=== PATIENT | male | born 1985 | race Caucasian/White ===

== ENCOUNTER 2016-03-29 07:09 | Emergency (ER) | payer OTHER ==
[~2016-03-29] VITALS: Ht 180.3 cm; Wt 92.4 kg
[2016-03-29 07:10] VITALS: TEMP 36.8; Ht 180.3 cm; Wt 92.4 kg
[2016-03-29] MEDS ORDERED: NAPR375T3 PO (07:50)
[2016-03-29] MEDS ORDERED: MULT-600 (07:50)
[2016-03-29] MEDS ORDERED: CEFTRIAXONE SOD INJ 1 GM ADDVIAL IV STA (08:30)
[2016-03-29] MEDS ORDERED: VANCOMYCIN 1GM/270ML NSS IV STA (08:48)
[2016-03-29 09:02] LABS: BASO % 0.1 %; BASO ABS # 0.01 K/uL (0-0.2); COMPLETE YES; EOS % 1.1 %; HEMATOCRIT 41.3 % (42-52); IG% 0.1 %; LYMPH % 13.5 %; LYMPH ABS # 1.38 K/uL (1.2-3.4); MEAN CELL VOLUME 84.5 fL (80-100); MEAN CORPUSCULAR HEMOGLOBIN 29.9 pg (25-34); MEAN CORPUSCULAR HGB CONC 35.4 g/dl (32-36); MEAN PLATELET VOLUME 9.9 fL (7.4-10.4); MONO % 8.4 %; NEUT % 76.8 %; PLATELET COUNT 182 K/uL (130-400); RED BLOOD COUNT 4.89 M/uL (4.7-6.1); WHITE BLOOD COUNT 10.22 K/uL (4.8-10.8)
[2016-03-29 09:20] LABS: URINE APPEARANCE CLEAR (CLEAR); URINE BILIRUBIN NEG (NEG); URINE COLOR DK YELLOW; URINE NITRITE NEG (NEG); UROBILINOGEN NEG (NEG); ZZUR CULT IF INDIC CLEAN CATCH NO
[2016-03-29 09:24] LABS: PARTIAL THROMBOPLASTIN RATIO 1.2; PROTHROMBIN TIME (PATIENT) 10.5 SECONDS (9.0-12.0)
[2016-03-29 09:25] LABS: MANUAL MICROSCOPIC REQUIRED? NO; REVIEW REQ? NO
[2016-03-29 09:44] LABS: BUN/CREATININE RATIO 18.1 (10-20); CALCIUM 8.8 mg/dl (8.5-10.1); CREATININE 0.81 mg/dl (0.60-1.40); MAGNESIUM 2.3 mg/dl (1.8-2.4); POTASSIUM 3.7 mmol/L (3.5-5.1)
[2016-03-29 09:47] LABS: ALB/GLOB RATIO 1.3 (0.9-2); C-REACTIVE PROTEIN 5.23 mg/dl (0-0.29)
--- NOTE | 2016-03-29 10:09 | DIAGNOSTIC IMAGING REPORT ---
TESTICULAR ULTRASOUND CLINICAL HISTORY: RIGHT scrotal abscess COMPARISON STUDY: No previous studies for comparison. FINDINGS: The right testis measures 4.8 x 2.8 x 3.3 cm. The left testis measures 4.7 x 2.9 x 3.3 cm. No intratesticular masses are visualized. There is no evidence of testicular torsion. There is a markedly thick in the right hemiscrotum. IMPRESSION: 1. Markedly thickened heterogeneous right scrotal wall. 2. No evidence of intratesticular mass. 3. No evidence of testicular torsion. Electronically signed by: Placido Tapia M.D. 03/29/2016 10:07 AM Dictated Date/Time: 03/29/2016 10:06 AM
[2016-03-29] MEDS ORDERED: SODIUM CHLORIDE 0.9% 500ML 500 ML IV STA (10:13)
[2016-03-29] MEDS ORDERED: OPTIRAY 320 IV PRN (10:30)
--- NOTE | 2016-03-29 11:51 | DIAGNOSTIC IMAGING REPORT ---
CT SCAN OF THE PELVIS WITH IV CONTRAST CLINICAL HISTORY: Right groin lump. COMPARISON STUDY: Scrotal ultrasound dated 03/29/16. TECHNIQUE: CT scan of the pelvis is performed from the pelvic inlet to the proximal femora. Images are reviewed in the axial, sagittal, and coronal planes. IV contrast was administered without complication. CT DOSE: 1153.51 mGy.cm FINDINGS: The bladder is normal in appearance. There is a 2.0 cm cystic structure identified in the prostate gland on image #177. This likely represents a utricular cyst. The seminal vesicles are normal as imaged. There is marked scrotal wall thickening and edema, right greater than left. There is a small complex/multiloculated fluid collection identified in the right scrotal wall seen on image #291. This measures 2.4 x 1.6 cm and is consistent with a small abscess. There is no large hydrocele. The testes are normal as visualized. Prominent right inguinal lymph nodes are likely on a reactive basis. There is no pelvic sidewall or iliac chain lymphadenopathy. The iliac vessels are widely patent. Visualized bowel loops are normal in caliber. A normal appendix is seen. There is a small fat-containing umbilical hernia. The bony pelvis is intact. No lytic or blastic bony lesions are seen. An indeterminant but benign-appearing lucency is noted in the body of L4. This is only partially visualized. IMPRESSION: 1. There is diffuse wall thickening and edema of the scrotal wall, right greater than left. The appearance is typical for cellulitis. 2. There is a 2.4 cm multiloculated fluid collection identified within the right scrotal wall consistent with a small abscess. 3. Prominent right inguinal lymph nodes are likely on a reactive basis. 4. There is a 2.0 cm simple appearing cystic structure identified in the prostate gland. This likely represents a utricular cyst. A urethral diverticulum is considered less likely. Consider nonemergent urologic follow-up. 5. There is indeterminant benign-appearing lucent lesion partially visualized in the body of L4. Consider nonemergent radiographic follow-up. Electronically signed by: Rj De La Rosa M.D. 03/29/2016 11:50 AM Dictated Date/Time: 03/29/2016 11:39 AM
[2016-03-29] MEDS ORDERED: XYLOCAINE 1%/SOD BICARB 20 ML VIAL INFIL ONE (12:30)
[2016-03-29] MEDS ORDERED: SULF800T23 PO (13:08)
[2016-03-29] MEDS ORDERED: CEPH500C PO (13:08)
[2016-03-29] MEDS ORDERED: HYDR-5688 PO (13:08)
--- NOTE | 2016-03-29 13:10 | EMERGENCY ROOM VISIT NOTE ---
History First contact with patient: 07:20 Chief Complaint: GROIN PAIN Stated Complaint: LUMP IN GROIN History of Present Illness The patient is a 30 year old male who presents to the Emergency Department by private vehicle for evaluation of pain and lump in the RIGHT-sided groin. He reports 2 days ago he noticed what he thought was a pimple or infected hair follicle to the RIGHT sided scrotum. He does report shaving recently. He denies any pain to the testicle itself. There is been no direct trauma to the scrotum. He reports that he did squeeze the area with some mild discharge noted. He has a moderate amount of discomfort rated his pain a 7/10. He does report a history of staph infection in the past. He denies any risks for STI' s. He is sexually active. He denies any penile discharge or drainage. He reports no fevers, chills, abdominal pain, nausea, or vomiting. He denies any hematuria or dysuria. The patient complains of pain radiates to his rectum. The patient is not a diabetic. His tetanus status is up-to-date. Review of Systems A complete 10-point Review of Systems was discussed with the patient, with pertinent positives and negatives listed in the History of Present Illness. All remaining Review of Systems questions can be considered negative unless otherwise specified. Past Medical/Surgical History Medical Problems: (1) Cellulitis Of Trunk (2) Fx Ankle Nos-Closed Family History Seizures Social History Smoking Status: Current Every Day Smoker Alcohol Use: occasionally Drug Use: none Marital Status: Occupation Status: employed Current/Historical Medications Scheduled Cephalexin Monohydrate (Keflex), 500 MG PO TID Naproxen (Naproxen), 1 TAB PO BID Sulfa/Trimethoprim (Bactrim Ds 800MG/160MG), 1 TAB PO BID Scheduled PRN Hydrocodone/Acetaminophen 5MG/325MG ([place] 5MG/325MG), 1-2 TABLET PO Q4H PRN for Pain Miscellaneous Medications Multiple Vitamins W/ Minerals (Mens Multi Vitamin & Mine) Allergies Coded Allergies: Bupropion (Verified Allergy, Intermediate, Seizures, 03/29/16) Physical Exam Vital Signs Date Time Temp Pulse Resp B/P Pulse Ox O2 Delivery O2 Flow Rate FiO2 03/29/16 13:23 102 18 119/69 100 03/29/16 12:40 111 18 144/77 99 Room Air 2/3/17 11:38 104 18 144/76 100 Room Air 03/29/16 10:11 106 18 137/76 100 Room Air 03/29/16 08:47 99 16 129/78 100 Room Air 03/29/16 07:10 36.8 110 18 129/78 100 Room Air Pain Rating (0-10): 7 Physical Exam VITAL SIGNS - Vital signs and nursing notes were reviewed. GENERAL - 30-year-old Male appearing his stated age who is in no acute distress. Communicates well with provider and answers questions appropriately. ABDOMEN - Abdominal contour flat and without pulsations or visible masses. BS normoactive all four quadrants. No tenderness to palpation appreciated throughout. No palpable masses, hepatosplenomegaly, or ascites noted. GENITOURINARY -circumcised male without penile lesions or adhesions. No urethral discharge. No testicular tenderness to palpation appreciated bilaterally. Mild induration and palpable tenderness to palpation noted to the RIGHT-sided scrotal wall at the junction of the scrotum and thigh. Multiple small open areas with purulent expressible discharge appreciated. No fluctuance to palpation. PSYCH - A&Ox3 and cooperates fully with examiner. Pt is very pleasant and interacts well with examiner. Medical Decision & Procedures ER Provider Diagnostic Interpretation: Radiological imaging and reports were reviewed by myself. Radiologist's Interpretation as follows: TESTICULAR ULTRASOUND CLINICAL HISTORY: RIGHT scrotal abscess COMPARISON STUDY: No previous studies for comparison. FINDINGS: The right testis measures 4.8 x 2.8 x 3.3 cm. The left testis measures 4.7 x 2.9 x 3.3 cm. No intratesticular masses are visualized. There is no evidence of testicular torsion. There is a markedly thick in the right hemiscrotum. IMPRESSION: 1. Markedly thickened heterogeneous right scrotal wall. 2. No evidence of intratesticular mass. 3. No evidence of testicular torsion. CT SCAN OF THE PELVIS WITH IV CONTRAST CLINICAL HISTORY: Right groin lump. COMPARISON STUDY: Scrotal ultrasound dated 03/29/16. TECHNIQUE: CT scan of the pelvis is performed from the pelvic inlet to the proximal femora. Images are reviewed in the axial, sagittal, and coronal planes. IV contrast was administered without complication. CT DOSE: 1153.51 mGy.cm FINDINGS: The bladder is normal in appearance. There is a 2.0 cm cystic structure identified in the prostate gland on image #177. This likely represents a utricular cyst. The seminal vesicles are normal as imaged. There is marked scrotal wall thickening and edema, right greater than left. There is a small complex/multiloculated fluid collection identified in the right scrotal wall seen on image #291. This measures 2.4 x 1.6 cm and is consistent with a small abscess. There is no large hydrocele. The testes are normal as visualized. Prominent right inguinal lymph nodes are likely on a reactive basis. There is no pelvic sidewall or iliac chain lymphadenopathy. The iliac vessels are widely patent. Visualized bowel loops are normal in caliber. A normal appendix is seen. There is a small fat-containing umbilical hernia. The bony pelvis is intact. No lytic or blastic bony lesions are seen. An indeterminant but benign-appearing lucency is noted in the body of L4. This is only partially visualized. IMPRESSION: 1. There is diffuse wall thickening and edema of the scrotal wall, right greater than left. The appearance is typical for cellulitis. 2. There is a 2.4 cm multiloculated fluid collection identified within the right scrotal wall consistent with a small abscess. 3. Prominent right inguinal lymph nodes are likely on a reactive basis. 4. There is a 2.0 cm simple appearing cystic structure identified in the prostate gland. This likely represents a utricular cyst. A urethral diverticulum is considered less likely. Consider nonemergent urologic follow-up. 5. There is indeterminant benign-appearing lucent lesion partially visualized in the body of L4. Consider nonemergent radiographic follow-up. Laboratory Results 03/29/16 08:30 Red Blood Count 4.89, Mean Corpuscular Volume 84.5, Mean Corpuscular Hemoglobin 29.9, Mean Corpuscular Hemoglobin Concent 35.4, Mean Platelet Volume 9.9, Neutrophils (%) (Auto) 76.8, Lymphocytes (%) (Auto) 13.5, Monocytes (%) (Auto) 8.4, Eosinophils (%) (Auto) 1.1, Basophils (%) (Auto) 0.1, Neutrophils # (Auto) 7.85, Lymphocytes # (Auto) 1.38, Monocytes # (Auto) 0.86, Eosinophils # (Auto) 0.11, Basophils # (Auto) 0.01 03/29/16 08:30 Test 03/29/16 08:30 03/29/16 08:40 03/29/16 08:44 White Blood Count 10.22 K/uL (4.8-10.8) Red Blood Count 4.89 M/uL (4.7-6.1) Hemoglobin 14.6 g/dL (14.0-18.0) Hematocrit 41.3 % (42-52) Mean Corpuscular Volume 84.5 fL (80-100) Mean Corpuscular Hemoglobin 29.9 pg (25-34) Mean Corpuscular Hemoglobin Concent 35.4 g/dl (32-36) Platelet Count 182 K/uL (130-400) Mean Platelet Volume 9.9 fL (7.4-10.4) Neutrophils (%) (Auto) 76.8 % Lymphocytes (%) (Auto) 13.5 % Monocytes (%) (Auto) 8.4 % Eosinophils (%) (Auto) 1.1 % Basophils (%) (Auto) 0.1 % Neutrophils # (Auto) 7.85 K/uL (1.4-6.5) Lymphocytes # (Auto) 1.38 K/uL (1.2-3.4) Monocytes # (Auto) 0.86 K/uL (0.11-0.59) Eosinophils # (Auto) 0.11 K/uL (0-0.5) Basophils # (Auto) 0.01 K/uL (0-0.2) RDW Standard Deviation 39.3 fL (36.4-46.3) RDW Coefficient of Variation 12.9 % (11.5-14.5) Immature Granulocyte % (Auto) 0.1 % Immature Granulocyte # (Auto) 0.01 K/uL (0.00-0.02) Erythrocyte Sedimentation Rate 12 mm/hr (0-14) Prothrombin Time 10.5 SECONDS (9.0-12.0) Prothromb Time International Ratio 1.0 (0.9-1.1) Activated Partial Thromboplast Time 31.1 SECONDS (21.0-31.0) Partial Thromboplastin Ratio 1.2 Anion Gap 9.0 mmol/L (3-11) Est Creatinine Clear Calc Drug Dose 154.9 ml/min Estimated GFR () 138.2 Estimated GFR (Non- 119.3 BUN/Creatinine Ratio 18.1 (10-20) Calcium Level 8.8 mg/dl (8.5-10.1) Magnesium Level 2.3 mg/dl (1.8-2.4) Total Bilirubin 0.8 mg/dl (0.2-1) Aspartate Amino Transf (AST/SGOT) 14 U/L (15-37) Alanine Aminotransferase (ALT/SGPT) 39 U/L (12-78) Alkaline Phosphatase 74 U/L (45-117) C-Reactive Protein 5.23 mg/dl (0-0.29) Total Protein 7.3 gm/dl (6.4-8.2) Albumin 4.1 gm/dl (3.4-5.0) Globulin 3.2 gm/dl (2.5-4.0) Albumin/Globulin Ratio 1.3 (0.9-2) Urine Color DK YELLOW Urine Appearance CLEAR (CLEAR) Urine pH 6.0 (4.5-7.5) Urine Specific [place] 1.040 (1.000-1.030) Urine Protein NEG (NEG) Urine Glucose (UA) NEG (NEG) Urine Ketones TRACE (NEG) Urine Occult Blood NEG (NEG) Urine Nitrite NEG (NEG) Urine Bilirubin NEG (NEG) Urine Urobilinogen NEG (NEG) Urine Leukocyte Esterase NEG (NEG) Bedside Lactic Acid Venous 0.46 mmol/L (0.90-1.70) Medications Administered Medications (Trade) Dose Ordered Sig/Skinny Route Start Time Stop Time Status Last Admin Dose Admin Ceftriaxone Sodium (Rocephin Inj) 1 gm NOW STAT IV 03/29/16 08:30 03/29/16 08:33 DC 03/29/16 08:45 1 GM Vancomycin HCl 1 gm 1 gm NOW STAT IV 03/29/16 08:48 03/29/16 08:49 DC 03/29/16 09:12 1 GM Sodium Chloride (Nss 500ml) 500 ml @ 999 mls/hr Q31M STAT IV 03/29/16 10:13 03/29/16 10:43 DC 03/29/16 10:27 999 MLS/HR Lidocaine HCl (Buffered Lidocaine 1% Inj) 20 ml ONE ONCE INFIL 03/29/16 12:30 03/29/16 12:31 DC 03/29/16 12:30 20 ML Procedure I examined the patient. Verbal consent was obtained to perform the procedure. After saline and Betadine cleansing and 1.0 mL of 1% buffered lidocaine anesthesia. A small amount of purulent material was expressed. The area was unroofed without significant purulent discharge. No packing was placed. Patient tolerated procedure well. No complications were met. ED Course Patient was seen and evaluated by myself. Labs were drawn, saline lock in place. Blood cultures and wound culture were obtained. Patient was treated with 1 g of Rocephin and 1 g of vancomycin intravenously. He was hydrated with 1000 mL of normal saline. Laboratory results demonstrate no acute leukocytosis , worrisome anemia, or bandemia. The patient has no significant electrolyte abnormalities. Imaging results above. Imaging results and labs were reviewed with the patient who acknowledges understanding. I did discuss the case with Dr. Titus of [facility]. He does agree with antibiotics and close follow-up. I did attempt to perform incision and drainage. There is no significant expressible purulent material. The patient will be covered with Keflex and Bactrim pending cultures. The patient was encouraged to return in 48 hours for wound recheck. He will return sooner for any changing or worsening symptoms. Patient discharged home afebrile and in good condition. Medical Decision Given the patient's presentation and exam findings, I did elect to perform the above-mentioned workup. The patient presents today with a cellulitis with underlying abscess to the RIGHT scrotal area. There is no significant findings consistent with Natali's gangrene at this point per imaging studies. He has no fever leukocytosis. His inflammatory markers are not significantly elevated. The patient was aggressively managed with intravenous antibiotics. She will be covered with enemas for home. He will return in 48 hours for wound check or sooner for any change or worsening symptoms. Patient discharged home afebrile and in good condition. In the evaluation and treatment of this patient, the following differential diagnoses were considered: Natali's gangrene, testicular torsion, testicular mass, foreign body, STI, amongst others. Impression Primary Impression: Cellulitis of scrotum Additional Impression: Abscess of scrotal wall Departure Information Dispostion Home / Self-Care Condition GOOD Prescriptions Sulfa/Trimethoprim (Bactrim Ds 800MG/160MG) Tab 1 TAB PO BID for 10 Days, #20 TAB Prov: Reggie Monte, NGHIA 03/29/16 Cephalexin Monohydrate (Keflex) 500 Mg Cap 500 MG PO TID for 10 Days, #30 CAP Prov: Reggie Monte PA-C 03/29/16 Hydrocodone/Acetaminophen 5MG/325MG ([place] 5MG/325MG) Tab 1-2 TABLET PO Q4H Y for Pain, #20 TAB For Initial Treatment Prov: Reggie Monte PA-C 03/29/16 Referrals No Doctor, Assigned (PCP) Pau Saunders MD Patient Instructions Cellulitis - [facility], My [facility] Additional Instructions You were seen in the Emergency Department for and Abscess and Cellulitis of the RIGHT sided scrotum. Please return to the emergency department in 48 hours for wound recheck. Return to the emergency department sooner if your symptoms worsen in this timeframe You have been prescribed [place] to be used for pain control. This is a narcotic medication. You cannot drive or consume alcohol while on this medicine. This medicine should only be used for pain that cannot be controlled with over-the- counter pain medicines. You were prescribed Keflex and Bactrim to be taken as prescribed. Both of these medications are antibiotics. Stop these medications and contact a medical provider if you were to develop any significant adverse side effects including: wheezing, shortness of breath, passing out, vomiting, or a diffuse rash. Always take antibiotics as directed and COMPLETE the ENTIRE course regardless of the improvement of your symptoms. Look for signs of infection of the wound including: increased pain, swelling, foul discharge, streaking, or increased temperature. If any of these are noticed you should return to the Emergency Department for further assessment and treatment. As with any laceration you may have received nerve damage to the surrounding tissues. This damage may or may not be permanent. For pain control, you can use the following [id number] medicines (if >12 yo): - Regular strength (325mg/tab) Tylenol (acetaminophen) 2 tabs every 4-6 hours as needed. Do not exceed 12 tablets in a 24 hour period. Avoid taking more than 4 grams (4000 mg) of Tylenol per day. This includes any other sources of acetaminophen you may take on a regular basis. - Regular strength (200 mg/tab) Advil (ibuprofen) 1-2 tabs every 4-6 hours as needed. Do not exceed a dose of 3200 mg per day. Return to the emergency department if your symptoms worsen despite treatment course outlined above. Problem Qualifiers
[2016-03-29 13:23] VITALS: BP 119/69; PULSE 102; O2SAT 100
[2016-06-24] MEDS ORDERED: DIPH1TAB PO (10:45)
== END 2016-03-29 13:24 | disposition home or self-care (01) ==
LOC: C.EDB 07:11 → C.EDA 13:24
DX: N49.2 Inflammatory disorders of scrotum (principal); F17.200 Nicotine dependence, unspecified, uncomplicated

== ENCOUNTER 2016-03-31 15:15 | Inpatient (IN) | payer OTHER ==
[~2016-03-31] VITALS: Ht 170.2 cm; Wt 93.6 kg
[~2016-03-31 15:15] MED LIST: CEPH500C PO; HYDR-5688 PO; MULT-600; NAPR375T3 PO; SULF800T23 PO
[2016-03-31] MEDS ORDERED: SODIUM CHLORIDE 0.9% 1000ML 1,000 ML IV STA (16:35)
[2016-03-31] MEDS ORDERED: VANCOMYCIN INJ 1,000 MG in SODIUM CHLORIDE 0.9% 250ML 250 ML IV STA (16:35)
[2016-03-31] MEDS ORDERED: CLINDAMYCIN IV 900 MG in DEXTROSE 5% ADD-VANTAGE 100ML 100 ML IV ONE (16:45)
[2016-03-31 16:59] LABS: BASO % 0.2 %; BASO ABS # 0.02 K/uL (0-0.2); COMPLETE YES; EOS % 1.2 %; HEMATOCRIT 39.6 % (42-52); IG% 0.3 %; LYMPH % 12.9 %; MEAN CELL VOLUME 84.8 fL (80-100); MEAN CORPUSCULAR HEMOGLOBIN 29.6 pg (25-34); MEAN CORPUSCULAR HGB CONC 34.8 g/dl (32-36); MEAN PLATELET VOLUME 9.9 fL (7.4-10.4); MONO % 10.9 %; NEUT % 74.5 %; PLATELET COUNT 175 K/uL (130-400); RED BLOOD COUNT 4.67 M/uL (4.7-6.1); WHITE BLOOD COUNT 11.64 K/uL (4.8-10.8)
[2016-03-31 17:25] VITALS: O2SAT 98; Ht 170.2 cm; Wt 93.6 kg
[2016-03-31 17:27] LABS: ALB/GLOB RATIO 0.8 (0.9-2); BUN/CREATININE RATIO 11.2 (10-20); CALCIUM 8.6 mg/dl (8.5-10.1); CREATININE 0.85 mg/dl (0.60-1.40)
[2016-03-31] MEDS ORDERED: HYDROCODONE/ACETAMOPHEN 5/325MG TAB PO PRN (18:45)
[2016-03-31] MEDS ORDERED: ACETAMINOPHEN 325 MG TAB PO PRN (18:45)
[2016-03-31] MEDS ORDERED: ZOLPIDEM TARTRATE 5 MG TAB PO PRN (18:45)
[2016-03-31] MEDS ORDERED: ALUMINUM/MAGNESIUM/SIMETH (MAALOX MAX) 30 ML UDC PO PRN (19:00)
[2016-03-31] MEDS ORDERED: ONDANSETRON INJ 2 MG/ML 2 ML VIAL IV PRN (19:00)
[2016-03-31] MEDS ORDERED: MAGNESIUM HYDROXIDE SUSP 30 ML UDC PO PRN (19:00)
[2016-03-31] MEDS ORDERED: PROMETHAZINE HCL INJ 12.5 MG in SODIUM CHLORIDE 0.9% 50ML 50 ML IV PRN (19:00)
[2016-03-31] MEDS ORDERED: MoRPHine SULFATE 2 MG/ML CARP IV PRN (19:00)
[2016-03-31] MEDS ORDERED: LORAZEPAM 2 MG/ML 1 ML VIAL IV PRN (19:00)
[2016-03-31] MEDS ORDERED: DiphenhydrAMINE HCL 50 MG/ML VIAL IV PRN (19:00)
[2016-03-31] MEDS ORDERED: LORAZEPAM INJ 0.5 MG in SYRINGE 0.75 ML IV PRN (19:30)
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
[2016-03-31 23:59] VITALS: BP 109/68; PULSE 96; TEMP 36.8; O2SAT 100
[2016-04-01] MEDS: CLINDAMYCIN IV 900 MG in DEXTROSE 5% ADD-VANTAGE 100ML 100 ML IV SCH ×3 (06:13→22:13)
[2016-04-01 07:50] VITALS: BP 107/67; PULSE 90; TEMP 36.8; O2SAT 98
[2016-04-01 07:50] LABS: BASO % 0.1 %; BASO ABS # 0.01 K/uL (0-0.2); COMPLETE YES; EOS % 2.7 %; HEMATOCRIT 37.4 % (42-52); IG% 0.5 %; LYMPH % 18.3 %; LYMPH ABS # 1.61 K/uL (1.2-3.4); MEAN CELL VOLUME 85.8 fL (80-100); MEAN CORPUSCULAR HEMOGLOBIN 30.3 pg (25-34); MEAN CORPUSCULAR HGB CONC 35.3 g/dl (32-36); MEAN PLATELET VOLUME 10.3 fL (7.4-10.4); MONO % 12.2 %; NEUT % 66.2 %; PLATELET COUNT 200 K/uL (130-400); RED BLOOD COUNT 4.36 M/uL (4.7-6.1)
[2016-04-01] MEDS: LACTOBACILLUS ACIDOPHILUS (FLORANEX) TAB PO SCH ×3 (07:50→17:52)
[2016-04-01] MEDS: CEROVITE ADV FORMULA TAB PO SCH (07:50)
[2016-04-01 08:13] LABS: BUN/CREATININE RATIO 12.3 (10-20); CALCIUM 8.2 mg/dl (8.5-10.1); CREATININE 0.8 mg/dl (0.60-1.40); MAGNESIUM 1.9 mg/dl (1.8-2.4); POTASSIUM 3.6 mmol/L (3.5-5.1)
--- NOTE | 2016-04-01 11:34 | Family Medicine Progress Note ---
Progress Note Date of Service Apr 01, 2016. Subjective Pt evaluation today including: conversation w/ patient, conversation w/ family Mr Lorenzo states that is currently feeling better and his scrotal and inguinal pain has improved. Yesterday, the pain was rated a 7 out of 10 and today he rates it a 2 out of 10. He denies specific fever or chills. He also denies abdominal pain, nausea, vomiting, and lower extremity swelling or erythema. The patient was previously seen in the ED three days ago. He was diagnosed with cellulitis then and was started on Keflex and Bactrim DS twice a day. At that time, a culture was collected from the fluid collected from the I&D. The culture showed a staph aureus which is resistant only to erythromycin. On review of previous records, he also had cellulitis on his penis from shaving the inguinal area. Constitutional: + sweats, No chills, No fatigue, No fever, No weakness, No weight loss Eyes: No worsening of vision ENT: No hearing loss Respiratory: No cough, No sputum Cardiovascular: No chest pain Abdomen: No nausea, No pain Musculoskeletal: No joint pain Male : No dysuria All Other Systems: Reviewed and Negative Medications Current Inpatient Medications Medications (Trade) Dose Ordered Sig/Skinny Route Start Time Stop Time Status Last Admin Dose Admin Acetaminophen (Tylenol Tab) 650 mg Q4H PRN PO 03/31/16 18:45 04/30/16 18:44 Zolpidem Tartrate (Ambien Tab) 5 mg HSZ PRN PO 03/31/16 18:45 04/30/16 18:44 Acetaminophen/ Hydrocodone Bitart ([place] 5/325 Tab) 1 tab Q4H PRN PO 03/31/16 18:45 04/14/16 18:44 Multivitamins/ Minerals (Multivitamin W/ Minerals Tab) 1 tab DAILY PO 04/01/16 08:00 05/01/16 08:59 04/01/16 07:50 1 TAB Lactobacillus Acidophilus 4 tab 4 tab TIDM PO 04/01/16 08:00 05/01/16 07:59 04/01/16 13:01 4 TAB Clindamycin Phosphate/Dextrose (Cleocin Iv/ Dextrose Add-[place] 100ML) 106 ml @ 100 mls/hr Q8 IV 04/01/16 06:00 04/10/16 22:00 04/01/16 06:13 100 MLS/HR Lorazepam (Ativan Inj) 0.5 mg Q4H PRN IV 03/31/16 19:00 04/30/16 18:59 Magnesium Hydroxide (Milk Of Magnesia Susp) 30 ml Q6H PRN PO 03/31/16 19:00 04/30/16 18:59 Diphenhydramine HCl (Benadryl Inj) 25 mg Q4H PRN IV 03/31/16 19:00 04/30/16 18:59 Al Hydrox/Mg Hydrox/ Simethicone 15 ml 15 ml Q4H PRN PO 03/31/16 19:00 04/30/16 18:59 Promethazine HCl/ Sodium Chloride (Phenergan Inj/ Nss 50ml) 50.5 ml @ 202 mls/hr Q4H PRN IV 03/31/16 19:00 04/30/16 18:59 Ondansetron HCl (Zofran Inj) 4 mg Q6H PRN IV 03/31/16 19:00 04/30/16 18:59 Morphine Sulfate (MoRPHine SULFATE INJ) 2 mg Q2H PRN IV 03/31/16 19:00 04/14/16 18:59 Morphine Sulfate 4 mg 4 mg Q2H PRN IV 03/31/16 19:00 04/14/16 18:59 Lorazepam/Syringe (Ativan Inj/ Syringe) 1 ml @ 1 mls/min Q4H PRN IV 03/31/16 19:30 04/30/16 19:29 Objective Vital Signs Date Time Temp Pulse Resp B/P Pulse Ox O2 Delivery O2 Flow Rate FiO2 04/01/16 08:00 Room Air 04/01/16 07:50 36.8 90 16 107/67 98 Room Air 04/01/16 00:00 Room Air 03/31/16 23:59 36.8 96 18 109/68 100 Room Air 03/31/16 20:00 Room Air 03/31/16 18:30 94 18 113/69 99 Room Air 03/31/16 17:25 98 Room Air 03/31/16 17:23 93 18 134/72 98 Room Air 03/31/16 15:21 36.6 96 20 127/77 98 Room Air Physical Exam General Appearance: WD/WN, no apparent distress Eyes: normal inspection, PERRL ENT: hearing grossly normal Neck: supple, no JVD Respiratory/Chest: lungs clear, normal breath sounds, no respiratory distress Cardiovascular: regular rate, rhythm, no murmur Abdomen: normal bowel sounds, non tender, soft Extremities: normal range of motion, non-tender, normal inspection, no pedal edema Neurologic/Psychiatric: alert, normal mood/affect, oriented x 3 Skin: + pertinent finding (3cm circumferential open sore on R lateral scrotum with surrounding cellulitis which is limited to the scrotum. Purulent discharge coming out from central opening.) Laboratory Results 03/31/16 16:50 Red Blood Count 4.67, Mean Corpuscular Volume 84.8, Mean Corpuscular Hemoglobin 29.6, Mean Corpuscular Hemoglobin Concent 34.8, Mean Platelet Volume 9.9, Neutrophils (%) (Auto) 74.5, Lymphocytes (%) (Auto) 12.9, Monocytes (%) (Auto) 10.9, Eosinophils (%) (Auto) 1.2, Basophils (%) (Auto) 0.2, Neutrophils # (Auto ) 8.67, Lymphocytes # (Auto) 1.50, Monocytes # (Auto) 1.27, Eosinophils # (Auto ) 0.14, Basophils # (Auto) 0.02 04/01/16 07:07 Red Blood Count 4.36, Mean Corpuscular Volume 85.8, Mean Corpuscular Hemoglobin 30.3, Mean Corpuscular Hemoglobin Concent 35.3, Mean Platelet Volume 10.3, Neutrophils (%) (Auto) 66.2, Lymphocytes (%) (Auto) 18.3, Monocytes (%) (Auto) 12.2, Eosinophils (%) (Auto) 2.7, Basophils (%) (Auto) 0.1, Neutrophils # (Auto ) 5.83, Lymphocytes # (Auto) 1.61, Monocytes # (Auto) 1.07, Eosinophils # (Auto ) 0.24, Basophils # (Auto) 0.01 03/31/16 16:50 04/01/16 07:07 Test 03/31/16 16:50 04/01/16 07:07 White Blood Count 11.64 K/uL (4.8-10.8) 8.80 K/uL (4.8-10.8) Red Blood Count 4.67 M/uL (4.7-6.1) 4.36 M/uL (4.7-6.1) Hemoglobin 13.8 g/dL (14.0-18.0) 13.2 g/dL (14.0-18.0) Hematocrit 39.6 % (42-52) 37.4 % (42-52) Mean Corpuscular Volume 84.8 fL (80-100) 85.8 fL (80-100) Mean Corpuscular Hemoglobin 29.6 pg (25-34) 30.3 pg (25-34) Mean Corpuscular Hemoglobin Concent 34.8 g/dl (32-36) 35.3 g/dl (32-36) Platelet Count 175 K/uL (130-400) 200 K/uL (130-400) Mean Platelet Volume 9.9 fL (7.4-10.4) 10.3 fL (7.4-10.4) Neutrophils (%) (Auto) 74.5 % 66.2 % Lymphocytes (%) (Auto) 12.9 % 18.3 % Monocytes (%) (Auto) 10.9 % 12.2 % Eosinophils (%) (Auto) 1.2 % 2.7 % Basophils (%) (Auto) 0.2 % 0.1 % Neutrophils # (Auto) 8.67 K/uL (1.4-6.5) 5.83 K/uL (1.4-6.5) Lymphocytes # (Auto) 1.50 K/uL (1.2-3.4) 1.61 K/uL (1.2-3.4) Monocytes # (Auto) 1.27 K/uL (0.11-0.59) 1.07 K/uL (0.11-0.59) Eosinophils # (Auto) 0.14 K/uL (0-0.5) 0.24 K/uL (0-0.5) Basophils # (Auto) 0.02 K/uL (0-0.2) 0.01 K/uL (0-0.2) RDW Standard Deviation 38.7 fL (36.4-46.3) 40.6 fL (36.4-46.3) RDW Coefficient of Variation 12.7 % (11.5-14.5) 12.8 % (11.5-14.5) Immature Granulocyte % (Auto) 0.3 % 0.5 % Immature Granulocyte # (Auto) 0.04 K/uL (0.00-0.02) 0.04 K/uL (0.00-0.02) Anion Gap 8.0 mmol/L (3-11) 9.0 mmol/L (3-11) Est Creatinine Clear Calc Drug Dose 138.6 ml/min 147.3 ml/min Estimated GFR () 135.5 138.9 Estimated GFR (Non- 116.9 119.9 BUN/Creatinine Ratio 11.2 (10-20) 12.3 (10-20) Calcium Level 8.6 mg/dl (8.5-10.1) 8.2 mg/dl (8.5-10.1) Total Bilirubin 0.4 mg/dl (0.2-1) Aspartate Amino Transf (AST/SGOT) 12 U/L (15-37) Alanine Aminotransferase (ALT/SGPT) 33 U/L (12-78) Alkaline Phosphatase 86 U/L (45-117) Total Protein 6.8 gm/dl (6.4-8.2) Albumin 3.1 gm/dl (3.4-5.0) Globulin 3.7 gm/dl (2.5-4.0) Albumin/Globulin Ratio 0.8 (0.9-2) Magnesium Level 1.9 mg/dl (1.8-2.4) Assessment and Plan 30 yo M with right scrotal cellulitis, with MSSA on culture from ED 03/29/16, now on IV Clindamycin day 2. 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 - will discuss he have an outbreak which then got superinfected Hx of Seizures - Monitor, pt not on any home meds for seizure prophylaxis VTE: SCDs CODE: FULL DISPO: MED/SURG Resident Tracking Resident Involvement: Resident Care Provided Care Provided: Adult Hospital Medicine Reviewed: Pt Seen/Exam by Me History feeling better compared to admission Constitutional: denies: fever Respiratory: negative: short of breath Cardiovascular: denies chest pain General Appearance: no apparent distress Respiratory: no respiratory distress Neurologic/Psychiatric: alert, oriented x 3 Skin Characteristics: other (scrotal swelling and erythema with draining area on right side. erythema extending into both side of groin - worse on right side. no erythema in lower abdomen below umbilicus as mentioned in the H and P) Assessment/Plan I have reviewed the medical record and performed a history and physical examination of this patient today. I have discussed the case with Dr López. The above note reflects my findings, conclusions, and recommendations.
--- NOTE | 2016-04-01 12:41 | Medical Student: [facility] ---
Med Student History & Physical Date & Time of Service: Apr 01, 2016 at 12:17 Chief Complaint: Cellulitis Of Scrotum Primary Care Physician: No Doctor, Assigned History of Present Illness Source: patient 30y/o male hospital admission day one for scrotal cellulitis states that is currently feeling better and his scrotal and inguinal pain has improved. Yesterday, the pain was rated a 7 our of 10 and today he rates it a 2 out of 10. The patient also complains of the room being hot and states that he has the sweats. He denies specific fever or chills. He also denies abdominal pain, nausea, vomiting, and lower extremity swelling or erythema. The patient was previously seen in the ED three days ago. He was diagnosed with cellulitis then and was started on Keflex and Bactrim DS twice a day. At that time, a culture was collected from the fluid collected from the I&D. The culture showed a staph aureus which is resistant only to erythromycin. Past Medical/Surgical History Medical Problems: (1) Abscess of scrotal wall (2) Cellulitis of scrotum (3) Recurrent seizures Status: Resolved Family History Seizures Social History Smoking Status: Current Every Day Smoker Smokeless Tobacco Use: No Alcohol Use: none Drug Use: none Marital Status: Housing status: lives with family Occupational Status: employed Allergies Coded Allergies: Bupropion (Verified Allergy, Intermediate, Seizures, 03/29/16) Medications Cephalexin Monohydrate (Keflex), 500 MG PO TID Hydrocodone/Acetaminophen 5MG/325MG ([place] 5MG/325MG), 1-2 TABLET PO Q4H PRN for Pain Multiple Vitamins W/ Minerals (Mens Multi Vitamin & Mine) Naproxen (Naproxen), 1 TAB PO BID PRN for Headache or Pain Sulfa/Trimethoprim (Bactrim Ds 800MG/160MG), 1 TAB PO BID Review of Systems Constitutional: + sweats, No chills, No fever, No weight loss Eyes: No discharge, No redness ENT: No hearing loss, No trouble swallowing Respiratory: No dyspnea at rest, No dyspnea on exertion, No shortness of breath , No wheezing Cardiovascular: No chest pain, No edema, No palpitations Abdomen: No constipation, No diarrhea, No nausea, No pain, No vomiting Musculoskeletal: No joint pain, No muscle pain, No swelling Neurologic: No memory loss, No paralysis Hematologic / Lymphatic: + swollen lymph nodes (inguinal) Integumentary: No itch, No new/changing skin lesions, No rash Physical Exam Vital Signs (24 Hours) Date Time Temp Pulse Resp B/P Pulse Ox O2 Delivery O2 Flow Rate FiO2 04/01/16 08:00 Room Air 04/01/16 07:50 36.8 90 16 107/67 98 Room Air 04/01/16 00:00 Room Air 03/31/16 23:59 36.8 96 18 109/68 100 Room Air 03/31/16 20:00 Room Air 03/31/16 18:30 94 18 113/69 99 Room Air 03/31/16 17:25 98 Room Air 03/31/16 17:23 93 18 134/72 98 Room Air 03/31/16 15:21 36.6 96 20 127/77 98 Room Air General Appearance: WD/WN, no apparent distress, + pertinent finding (appears diaphoretic) Head: normocephalic, atraumatic Eyes: normal inspection, EOMI ENT: hearing grossly normal Respiratory/Chest: chest non-tender, lungs clear, normal breath sounds, no respiratory distress, no accessory muscle use Cardiovascular: regular rate, rhythm, no edema, no gallop, no murmur Abdomen/GI: normal bowel sounds, non tender, soft Genitourinary - Male: + pertinent finding (swelling and erythema of the scrotum , right more pronounced than left. Pus draining from open area of skin on right side of scrotum. Swelling and tenderness of the right inguinal lymphnodes.) Neurologic/Psych: no motor/sensory deficits, alert, normal mood/affect, oriented x 3 Skin: no rash Lymphatic: + inguinal node abnormality (swelling and pain) Diagnostics Laboratory Results Results Past 24 Hours Test 03/31/16 16:50 04/01/16 07:07 Range/Units White Blood Count 11.64 8.80 4.8-10.8 K/uL Red Blood Count 4.67 4.36 4.7-6.1 M/uL Hemoglobin 13.8 13.2 14.0-18.0 g/dL Hematocrit 39.6 37.4 42-52 % Mean Corpuscular Volume 84.8 85.8 80-100 fL Mean Corpuscular Hemoglobin 29.6 30.3 25-34 pg Mean Corpuscular Hemoglobin Concent 34.8 35.3 32-36 g/dl Platelet Count 175 200 130-400 K/uL Mean Platelet Volume 9.9 10.3 7.4-10.4 fL Neutrophils (%) (Auto) 74.5 66.2 % Lymphocytes (%) (Auto) 12.9 18.3 % Monocytes (%) (Auto) 10.9 12.2 % Eosinophils (%) (Auto) 1.2 2.7 % Basophils (%) (Auto) 0.2 0.1 % Neutrophils # (Auto) 8.67 5.83 1.4-6.5 K/uL Lymphocytes # (Auto) 1.50 1.61 1.2-3.4 K/uL Monocytes # (Auto) 1.27 1.07 0.11-0.59 K/uL Eosinophils # (Auto) 0.14 0.24 0-0.5 K/uL Basophils # (Auto) 0.02 0.01 0-0.2 K/uL RDW Standard Deviation 38.7 40.6 36.4-46.3 fL RDW Coefficient of Variation 12.7 12.8 11.5-14.5 % Immature Granulocyte % (Auto) 0.3 0.5 % Immature Granulocyte # (Auto) 0.04 0.04 0.00-0.02 K/uL Sodium Level 140 139 136-145 mmol/L Potassium Level 4.0 3.6 3.5-5.1 mmol/L Chloride Level 104 106 98-107 mmol/L Carbon Dioxide Level 28 24 21-32 mmol/L Anion Gap 8.0 9.0 3-11 mmol/L Blood Urea Nitrogen 10 10 7-18 mg/dl Creatinine 0.85 0.80 0.60-1.40 mg/dl Est Creatinine Clear Calc Drug Dose 138.6 147.3 ml/min Estimated GFR () 135.5 138.9 Estimated GFR (Non- 116.9 119.9 BUN/Creatinine Ratio 11.2 12.3 10-20 Random Glucose 110 115 70-99 mg/dl Calcium Level 8.6 8.2 8.5-10.1 mg/dl Total Bilirubin 0.4 0.2-1 mg/dl Aspartate Amino Transf (AST/SGOT) 12 15-37 U/L Alanine Aminotransferase (ALT/SGPT) 33 12-78 U/L Alkaline Phosphatase 86 45-117 U/L Total Protein 6.8 6.4-8.2 gm/dl Albumin 3.1 3.4-5.0 gm/dl Globulin 3.7 2.5-4.0 gm/dl Albumin/Globulin Ratio 0.8 0.9-2 Magnesium Level 1.9 1.8-2.4 mg/dl Diagnostic Radiology CT SCAN OF PELVIS (03/29/16) IMPRESSION: 1. There is diffuse wall thickening and edema of the scrotal wall, right greater than left. The appearance is typical for cellulitis. 2. There is a 2.4 cm multiloculated fluid collection identified within the right scrotal wall consistent with a small abscess. 3. Prominent right inguinal lymph nodes are likely on a reactive basis. 4. There is a 2.0 cm simple appearing cystic structure identified in the prostate gland. This likely represents a utricular cyst. A urethral diverticulum is considered less likely. Consider nonemergent urologic follow-up. 5. There is indeterminant benign-appearing lucent lesion partially visualized in the body of L4. Consider nonemergent radiographic follow-up. Impression Assessment and Plan 30y/o male inpatient day one for scrotal cellulitis. The patient failed outpatient treatment and PO antibiotics for his cellulitis and was brought into the hospital for IV antibiotics. The culture from the fluid from the I&D shows staph aureus that is sensitive to Clindamycin, his current antibiotic. The patient is also afebrile and his most recent WBC was within normal limits. He still needs to be seen by urology and will receive IV antibiotics today. Will reassess the patient tomorrow regarding continued hospital course versus outpatient management of cellulitis. Scrotal Cellulitis- Administer Clindamycin 900mg IV every eight hours. Pain control with hydrocodone/APAP 5/325 PO every four hours PRN and morphine sulfate 2-4mg IV every 2 hours PRN. Urology consulted and will see patient. Continue to monitor the patients labs, including WBC. Continue to monitor patient's vitals. Advanced Directives Existing Advance Directive: No Existing Living Will: No Existing Power of [place]: No
[2016-04-01 15:41] VITALS: BP 106/69; PULSE 82; TEMP 36.6; O2SAT 99
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
[2016-04-01] MEDS: MoRPHine SULFATE 4 MG/ML 1 ML CARP\\VIAL IV PRN (17:53)
[2016-04-01 20:00] VITALS: O2SAT 99
[2016-04-01 23:01] VITALS: BP 100/62; PULSE 80; TEMP 36.8; O2SAT 100
[2016-04-02] MEDS: CLINDAMYCIN IV 900 MG in DEXTROSE 5% ADD-VANTAGE 100ML 100 ML IV SCH ×3 (06:00→21:28)
[2016-04-02 06:38] LABS: BASO % 0.5 %; BASO ABS # 0.03 K/uL (0-0.2); COMPLETE YES; EOS % 3.2 %; HEMATOCRIT 39.1 % (42-52); IG% 1.4 %; LYMPH % 25.8 %; LYMPH ABS # 1.71 K/uL (1.2-3.4); MEAN CELL VOLUME 86.7 fL (80-100); MEAN CORPUSCULAR HEMOGLOBIN 29.9 pg (25-34); MEAN CORPUSCULAR HGB CONC 34.5 g/dl (32-36); MEAN PLATELET VOLUME 9.8 fL (7.4-10.4); MONO % 15.5 %; NEUT % 53.6 %; PLATELET COUNT 245 K/uL (130-400); RED BLOOD COUNT 4.51 M/uL (4.7-6.1); WHITE BLOOD COUNT 6.63 K/uL (4.8-10.8)
[2016-04-02 06:46] LABS: BUN/CREATININE RATIO 14.6 (10-20); CALCIUM 8.5 mg/dl (8.5-10.1); CREATININE 0.8 mg/dl (0.60-1.40); MAGNESIUM 2.1 mg/dl (1.8-2.4); POTASSIUM 3.5 mmol/L (3.5-5.1)
[2016-04-02 07:46] VITALS: BP 106/69; PULSE 84; TEMP 36.4; O2SAT 98
[2016-04-02] MEDS: CEROVITE ADV FORMULA TAB PO SCH (08:02)
[2016-04-02] MEDS: LACTOBACILLUS ACIDOPHILUS (FLORANEX) TAB PO SCH ×3 (08:03→17:27)
--- NOTE | 2016-04-02 08:07 | Progress Note ---
Subjective Date of Service: Apr 02, 2016. Subjective Pt evaluation today including: conversation w/ patient, chart review, lab review Voiding: no voiding problems 30 yo male s/p I&D of scrotal abscess. Pt reports he feels well this morning. Scrotal support, packing, and dressings remain in place. Denies n/v or f/c. Cultures pending. Review of Systems Constitutional: No chills, No fever Respiratory: No shortness of breath Cardiac: No chest pain Abdomen: No nausea, No pain, No vomiting Male : No dysuria, No hematuria Heme: No abnormal bleeding/bruising Objective Vital Signs Date Time Temp Pulse Resp B/P Pulse Ox O2 Delivery O2 Flow Rate FiO2 04/02/16 07:46 36.4 84 16 106/69 98 Room Air 04/02/16 00:15 Room Air 04/01/16 23:01 36.8 80 18 100/62 100 Room Air 04/01/16 20:00 99 Room Air 04/01/16 16:10 Room Air 04/01/16 15:41 36.6 82 18 106/69 99 Room Air Physical Exam General Appearance: no apparent distress Eyes: normal inspection ENT: hearing grossly normal Neck: no JVD Respiratory/Chest: no respiratory distress, no accessory muscle use Cardiovascular: no JVD Extremities: normal inspection Neurologic/Psychiatric: alert, normal mood/affect, oriented x 3 Skin: normal color Comments: Swollen scrotum noted on exam today. Wound packing remains in place with some bloody drainage noted. Laboratory Results Last 24 Hours Test 04/02/16 05:46 White Blood Count 6.63 K/uL Red Blood Count 4.51 M/uL Hemoglobin 13.5 g/dL Hematocrit 39.1 % Mean Corpuscular Volume 86.7 fL Mean Corpuscular Hemoglobin 29.9 pg Mean Corpuscular Hemoglobin Concent 34.5 g/dl Platelet Count 245 K/uL Mean Platelet Volume 9.8 fL Neutrophils (%) (Auto) 53.6 % Lymphocytes (%) (Auto) 25.8 % Monocytes (%) (Auto) 15.5 % Eosinophils (%) (Auto) 3.2 % Basophils (%) (Auto) 0.5 % Neutrophils # (Auto) 3.56 K/uL Lymphocytes # (Auto) 1.71 K/uL Monocytes # (Auto) 1.03 K/uL Eosinophils # (Auto) 0.21 K/uL Basophils # (Auto) 0.03 K/uL RDW Standard Deviation 42.0 fL RDW Coefficient of Variation 13.1 % Immature Granulocyte % (Auto) 1.4 % Immature Granulocyte # (Auto) 0.09 K/uL Sodium Level 142 mmol/L Potassium Level 3.5 mmol/L Chloride Level 106 mmol/L Carbon Dioxide Level 27 mmol/L Anion Gap 9.0 mmol/L Blood Urea Nitrogen 12 mg/dl Creatinine 0.80 mg/dl Est Creatinine Clear Calc Drug Dose 147.3 ml/min Estimated GFR () 138.9 Estimated GFR (Non- 119.9 BUN/Creatinine Ratio 14.6 Random Glucose 120 mg/dl Calcium Level 8.5 mg/dl Magnesium Level 2.1 mg/dl Assessment and Plan S/p I&D of scrotal abscess. AFVSS. Continue IV abx pending culture sensitivities. Would then transition to 2 weeks of oral therapy. Will arrange for a wound nurse consult to change wound packing daily. Will also need home health arranged to change wound packing daily while at home. Will consult social services coordinator to arrange. Recommend he remain inpatient until culture sensitivities return. Will continue to follow along with primary service at this time.
--- NOTE | 2016-04-02 08:44 | Family Medicine Progress Note ---
Progress Note Date of Service Apr 02, 2016. Subjective Pt evaluation today including: conversation w/ patient, conversation w/ family Reports he feels ok, just tired now. Received some morphine yesterday prior to I &D (4mg) and a further 2mg around 10pm, and since then has felt ok. Reports pain is localized to testicle and I&D had a lot of drainage. Denies any other concerns. Constitutional: No chills, No fever, No sweats, No weakness, No weight loss Eyes: No worsening of vision ENT: No hearing loss Respiratory: No cough, No shortness of breath, No sputum, No wheezing Cardiovascular: No chest pain Abdomen: No constipation, No nausea, No pain, No vomiting All Other Systems: Reviewed and Negative Medications Current Inpatient Medications Medications (Trade) Dose Ordered Sig/Skinny Route Start Time Stop Time Status Last Admin Dose Admin Acetaminophen (Tylenol Tab) 650 mg Q4H PRN PO 03/31/16 18:45 04/30/16 18:44 Zolpidem Tartrate (Ambien Tab) 5 mg HSZ PRN PO 03/31/16 18:45 04/30/16 18:44 Acetaminophen/ Hydrocodone Bitart ([place] 5/325 Tab) 1 tab Q4H PRN PO 03/31/16 18:45 04/14/16 18:44 Multivitamins/ Minerals (Multivitamin W/ Minerals Tab) 1 tab DAILY PO 04/01/16 08:00 05/01/16 08:59 04/02/16 08:02 1 TAB Lactobacillus Acidophilus 4 tab 4 tab TIDM PO 04/01/16 08:00 05/01/16 07:59 04/02/16 08:03 4 TAB Clindamycin Phosphate/Dextrose (Cleocin Iv/ Dextrose Add-[place] 100ML) 106 ml @ 100 mls/hr Q8 IV 04/01/16 06:00 04/10/16 22:00 04/02/16 06:00 100 MLS/HR Lorazepam (Ativan Inj) 0.5 mg Q4H PRN IV 03/31/16 19:00 04/30/16 18:59 Magnesium Hydroxide (Milk Of Magnesia Susp) 30 ml Q6H PRN PO 03/31/16 19:00 04/30/16 18:59 Diphenhydramine HCl (Benadryl Inj) 25 mg Q4H PRN IV 03/31/16 19:00 04/30/16 18:59 Al Hydrox/Mg Hydrox/ Simethicone 15 ml 15 ml Q4H PRN PO 03/31/16 19:00 04/30/16 18:59 Promethazine HCl/ Sodium Chloride (Phenergan Inj/ Nss 50ml) 50.5 ml @ 202 mls/hr Q4H PRN IV 03/31/16 19:00 04/30/16 18:59 Ondansetron HCl (Zofran Inj) 4 mg Q6H PRN IV 03/31/16 19:00 04/30/16 18:59 Morphine Sulfate (MoRPHine SULFATE INJ) 2 mg Q2H PRN IV 03/31/16 19:00 04/14/16 18:59 04/01/16 22:24 2 MG Morphine Sulfate 4 mg 4 mg Q2H PRN IV 03/31/16 19:00 04/14/16 18:59 04/01/16 17:53 4 MG Lorazepam/Syringe (Ativan Inj/ Syringe) 1 ml @ 1 mls/min Q4H PRN IV 03/31/16 19:30 04/30/16 19:29 Objective Vital Signs Date Time Temp Pulse Resp B/P Pulse Ox O2 Delivery O2 Flow Rate FiO2 04/02/16 07:46 36.4 84 16 106/69 98 Room Air 04/02/16 00:15 Room Air 04/01/16 23:01 36.8 80 18 100/62 100 Room Air 04/01/16 20:00 99 Room Air 04/01/16 16:10 Room Air 04/01/16 15:41 36.6 82 18 106/69 99 Room Air Physical Exam General Appearance: WD/WN, no apparent distress Eyes: normal inspection, PERRL ENT: hearing grossly normal Neck: supple, no JVD Respiratory/Chest: lungs clear, normal breath sounds, no respiratory distress Cardiovascular: regular rate, rhythm, no murmur Abdomen: normal bowel sounds, non tender, soft Extremities: non-tender Neurologic/Psychiatric: alert, normal mood/affect, oriented x 3 Skin: no rash, + pertinent finding (packed R hemiscrotum) Laboratory Results Last 24 Hours Test 04/02/16 05:46 White Blood Count 6.63 K/uL Red Blood Count 4.51 M/uL Hemoglobin 13.5 g/dL Hematocrit 39.1 % Mean Corpuscular Volume 86.7 fL Mean Corpuscular Hemoglobin 29.9 pg Mean Corpuscular Hemoglobin Concent 34.5 g/dl Platelet Count 245 K/uL Mean Platelet Volume 9.8 fL Neutrophils (%) (Auto) 53.6 % Lymphocytes (%) (Auto) 25.8 % Monocytes (%) (Auto) 15.5 % Eosinophils (%) (Auto) 3.2 % Basophils (%) (Auto) 0.5 % Neutrophils # (Auto) 3.56 K/uL Lymphocytes # (Auto) 1.71 K/uL Monocytes # (Auto) 1.03 K/uL Eosinophils # (Auto) 0.21 K/uL Basophils # (Auto) 0.03 K/uL RDW Standard Deviation 42.0 fL RDW Coefficient of Variation 13.1 % Immature Granulocyte % (Auto) 1.4 % Immature Granulocyte # (Auto) 0.09 K/uL Sodium Level 142 mmol/L Potassium Level 3.5 mmol/L Chloride Level 106 mmol/L Carbon Dioxide Level 27 mmol/L Anion Gap 9.0 mmol/L Blood Urea Nitrogen 12 mg/dl Creatinine 0.80 mg/dl Est Creatinine Clear Calc Drug Dose 147.3 ml/min Estimated GFR () 138.9 Estimated GFR (Non- 119.9 BUN/Creatinine Ratio 14.6 Random Glucose 120 mg/dl Calcium Level 8.5 mg/dl Magnesium Level 2.1 mg/dl Assessment and Plan 30 yo M with right scrotal cellulitis, with MSSA on culture from ED 03/29/16, now on IV Clindamycin day 2. 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
[2016-04-02] MEDS: MoRPHine SULFATE 4 MG/ML 1 ML CARP\\VIAL IV PRN ×2 (11:12→21:20)
[2016-04-02 11:53] VITALS: BP 130/80; PULSE 76; TEMP 36.7; O2SAT 98
--- NOTE | 2016-04-02 12:42 | Medical Student: [facility] ---
Med Student Progress Note Date of Service Apr 02, 2016. Subjective Pt evaluation today including: conversation w/ patient 30y/o male inpatient admission day two and IV antibiotic day three for scrotal cellulitis currently states that his pain in the scrotal area is 1 out of 10 at rest, as compared to is being 2-3 out of 10 yesterday. He states that the pain gets worse when he walks around. The patient is no longer having pain in the area of his inguinal lymph nodes and he states that both the redness and swelling in and around his scrotum has decreased. The patient also states that he is still getting the sweats, but it is occurring less often. Yesterday, the patient had an I&D performed by the urologist, Dr. Penaloza. Review of Systems Constitutional: + sweats, No chills, No fever Eyes: No discharge, No redness ENT: No hearing loss, No nasal symptoms Respiratory: No cough, No dyspnea on exertion, No shortness of breath, No sputum, No wheezing Cardiac: No chest pain, No edema, No palpitations Abdomen: No diarrhea, No nausea, No pain, No vomiting Male : No incontinence Neurologic: No memory loss, No numbness/tingling, No weakness Skin: + see HPI, No itch, No rash Objective Vital Signs Date Time Temp Pulse Resp B/P Pulse Ox O2 Delivery O2 Flow Rate FiO2 04/02/16 11:53 36.7 76 130/80 98 Room Air 04/02/16 08:00 Room Air 04/02/16 07:46 36.4 84 16 106/69 98 Room Air 04/02/16 00:15 Room Air 04/01/16 23:01 36.8 80 18 100/62 100 Room Air 04/01/16 20:00 99 Room Air 04/01/16 16:10 Room Air 04/01/16 15:41 36.6 82 18 106/69 99 Room Air Physical Exam General Appearance: WD/WN, no apparent distress Eyes: bilateral eyes EOMI, bilateral eyes normal inspection ENT: hearing grossly normal Respiratory/Chest: lungs clear, normal breath sounds, no respiratory distress, no accessory muscle use Cardiovascular: regular rate, rhythm, no edema, no gallop, no murmur Abdomen: normal bowel sounds, non tender, soft Extremities: non-tender, normal inspection, no pedal edema Neurologic/Psychiatric: alert, normal mood/affect Skin: normal color, warm/dry, + pertinent finding (erythema and swelling of the scrotum, more pronounced on right than left. Marker line outlining the cellulitis on right thigh shows that the redness has receded since yesterday. The scrotal swelling is also decreased since yesterday. BAndaging and packing in place of where the I&D was performed yesterday.) Lymphatic: + pertinent finding (slight right sided inguinal lympadenopathy, reduced from yesterday. No tenderness today.) Laboratory Results Last 24 Hours Test 04/02/16 05:46 White Blood Count 6.63 K/uL Red Blood Count 4.51 M/uL Hemoglobin 13.5 g/dL Hematocrit 39.1 % Mean Corpuscular Volume 86.7 fL Mean Corpuscular Hemoglobin 29.9 pg Mean Corpuscular Hemoglobin Concent 34.5 g/dl Platelet Count 245 K/uL Mean Platelet Volume 9.8 fL Neutrophils (%) (Auto) 53.6 % Lymphocytes (%) (Auto) 25.8 % Monocytes (%) (Auto) 15.5 % Eosinophils (%) (Auto) 3.2 % Basophils (%) (Auto) 0.5 % Neutrophils # (Auto) 3.56 K/uL Lymphocytes # (Auto) 1.71 K/uL Monocytes # (Auto) 1.03 K/uL Eosinophils # (Auto) 0.21 K/uL Basophils # (Auto) 0.03 K/uL RDW Standard Deviation 42.0 fL RDW Coefficient of Variation 13.1 % Immature Granulocyte % (Auto) 1.4 % Immature Granulocyte # (Auto) 0.09 K/uL Sodium Level 142 mmol/L Potassium Level 3.5 mmol/L Chloride Level 106 mmol/L Carbon Dioxide Level 27 mmol/L Anion Gap 9.0 mmol/L Blood Urea Nitrogen 12 mg/dl Creatinine 0.80 mg/dl Est Creatinine Clear Calc Drug Dose 147.3 ml/min Estimated GFR () 138.9 Estimated GFR (Non- 119.9 BUN/Creatinine Ratio 14.6 Random Glucose 120 mg/dl Calcium Level 8.5 mg/dl Magnesium Level 2.1 mg/dl Medications Current Inpatient Medications Medications (Trade) Dose Ordered Sig/Skinny Route Start Time Stop Time Status Last Admin Dose Admin Acetaminophen (Tylenol Tab) 650 mg Q4H PRN PO 03/31/16 18:45 04/30/16 18:44 Zolpidem Tartrate (Ambien Tab) 5 mg HSZ PRN PO 03/31/16 18:45 04/30/16 18:44 Acetaminophen/ Hydrocodone Bitart ([place] 5/325 Tab) 1 tab Q4H PRN PO 03/31/16 18:45 04/14/16 18:44 Multivitamins/ Minerals (Multivitamin W/ Minerals Tab) 1 tab DAILY PO 04/01/16 08:00 05/01/16 08:59 04/02/16 08:02 1 TAB Lactobacillus Acidophilus 4 tab 4 tab TIDM PO 04/01/16 08:00 05/01/16 07:59 04/02/16 08:03 4 TAB Clindamycin Phosphate/Dextrose (Cleocin Iv/ Dextrose Add-[place] 100ML) 106 ml @ 100 mls/hr Q8 IV 04/01/16 06:00 04/10/16 22:00 04/02/16 06:00 100 MLS/HR Lorazepam (Ativan Inj) 0.5 mg Q4H PRN IV 03/31/16 19:00 04/30/16 18:59 Magnesium Hydroxide (Milk Of Magnesia Susp) 30 ml Q6H PRN PO 03/31/16 19:00 04/30/16 18:59 Diphenhydramine HCl (Benadryl Inj) 25 mg Q4H PRN IV 03/31/16 19:00 04/30/16 18:59 Al Hydrox/Mg Hydrox/ Simethicone 15 ml 15 ml Q4H PRN PO 03/31/16 19:00 04/30/16 18:59 Promethazine HCl/ Sodium Chloride (Phenergan Inj/ Nss 50ml) 50.5 ml @ 202 mls/hr Q4H PRN IV 03/31/16 19:00 04/30/16 18:59 Ondansetron HCl (Zofran Inj) 4 mg Q6H PRN IV 03/31/16 19:00 04/30/16 18:59 Morphine Sulfate (MoRPHine SULFATE INJ) 2 mg Q2H PRN IV 03/31/16 19:00 04/14/16 18:59 04/01/16 22:24 2 MG Morphine Sulfate 4 mg 4 mg Q2H PRN IV 03/31/16 19:00 04/14/16 18:59 04/02/16 11:12 4 MG Lorazepam/Syringe (Ativan Inj/ Syringe) 1 ml @ 1 mls/min Q4H PRN IV 03/31/16 19:30 04/30/16 19:29 Assessment and Plan Assessment and Plan: 30 y/o male with scrotal cellulitis on antibiotic day three, being treated with Clindamycin. The patient's cellulitis is receding as the swelling and pain in the scrotum is decreasing as well. Labs and vitals remain steady. Scrotal Cellulitis- Continue to administer Clindamycin IV for treatment of the patient's MSSA cellulitis infection. Urology has been consulted, has seen the patient, and will continue to follow. The urologist performed an I&D of the scrotal abscess. The culture is pending. Urology has also packed the site of the I&D and has gotten Home Health involved to educate the patient on how to pack the wound following discharge. Continue to monitor the regression of cellulitis, as well as the patient's vitals, WBC, and other labs. Morphine as needed for the pain. Continued [facility] stay due to: other (IV medications needed, awaiting the culture of I&D fluid.)
[2016-04-02 15:48] VITALS: BP 116/72; PULSE 77; TEMP 36.4; O2SAT 97
[2016-04-03 00:03] VITALS: BP 101/66; PULSE 91; TEMP 36.9; O2SAT 98
[2016-04-03] MEDS: CLINDAMYCIN IV 900 MG in DEXTROSE 5% ADD-VANTAGE 100ML 100 ML IV SCH (05:55)
[2016-04-03 05:56] LABS: HEMATOCRIT 40.2 % (42-52); MEAN CELL VOLUME 85.9 fL (80-100); MEAN CORPUSCULAR HEMOGLOBIN 29.9 pg (25-34); MEAN CORPUSCULAR HGB CONC 34.8 g/dl (32-36); MEAN PLATELET VOLUME 9.5 fL (7.4-10.4); PLATELET COUNT 251 K/uL (130-400); RED BLOOD COUNT 4.68 M/uL (4.7-6.1); WHITE BLOOD COUNT 7.13 K/uL (4.8-10.8)
[2016-04-03 06:31] LABS: CALCIUM 8.7 mg/dl (8.5-10.1); CREATININE 0.76 mg/dl (0.60-1.40); MAGNESIUM 1.9 mg/dl (1.8-2.4); POTASSIUM 3.6 mmol/L (3.5-5.1)
[2016-04-03 06:36] LABS: COMPLETE YES; EOSINOPHIL % 2.6 %; LYMPH ABS # 2.42 K/uL (1.2-3.4); LYMPHOCYTE % 33.9 %; NEUTROPHILS % 52.2 %
--- NOTE | 2016-04-03 07:27 | Discharge Instructions ---
Discharge Instructions Admission Reason for Admission: Cellulitis Of [place] Discharge Discharge Diagnosis / Problem: Scrotal abscess Discharge Goals Goal(s): Improve disease control Activity Recommendations Activity Limitations: per Instructions/Follow-up section Exercise/Sports Limitations: until after follow-up appointment May Resume Sexual Activity: after follow-up appointment Shower/Bathe: keep incision dry . Instructions / Follow-Up Instructions / Follow-Up You were admitted for an abscess in your scrotum. Make to finish your course of antibiotics to clear the infection entirely. Follow up with your PCP within 1 week Follow up with Urology as instructed Current Hospital Diet Patient's current hospital diet: Regular Diet Discharge Diet Recommended Diet: Regular Diet Pending Studies Studies pending at discharge: no Medical Emergencies . Who to Call and When: Medical Emergencies: If at any time you feel your situation is an emergency, please call 911 immediately. . Non-Emergent Contact Non-Emergency issues call your: Primary Care Provider, Urologist Call Non-Emergent contact if: you have a fever, wound has increased drainage, wound has increased redness, wound has increased pain, you have any medication questions . . "Provider Documentation" section prepared by Joleen López. VTE Core Measure Inpt VTE Proph given/why not?: Treatment not indicated
[2016-04-03 07:45] VITALS: BP 110/70; PULSE 83; TEMP 36.5; O2SAT 100
--- NOTE | 2016-04-03 08:18 | Progress Note ---
Subjective Date of Service: Apr 03, 2016. Subjective Pt evaluation today including: conversation w/ patient, chart review, lab review Voiding: no voiding problems 30 yo male s/p I&D of scrotal abscess. Pt reports pain and scrotal swelling have improved. Wound culture growing staph aureus. Review of Systems Constitutional: No chills, No fever Respiratory: No shortness of breath Cardiac: No chest pain Abdomen: No nausea, No pain, No vomiting Male : No dysuria, No hematuria Heme: No abnormal bleeding/bruising Objective Vital Signs Date Time Temp Pulse Resp B/P Pulse Ox O2 Delivery O2 Flow Rate FiO2 04/03/16 07:45 36.5 83 20 110/70 100 Room Air 04/03/16 00:05 Room Air 04/03/16 00:03 36.9 91 18 101/66 98 Room Air 04/02/16 20:00 Room Air 04/02/16 16:00 Room Air 04/02/16 15:48 36.4 77 20 116/72 97 Room Air 04/02/16 11:53 36.7 76 130/80 98 Room Air Physical Exam General Appearance: no apparent distress Eyes: normal inspection ENT: hearing grossly normal Neck: no JVD Respiratory/Chest: no respiratory distress, no accessory muscle use Cardiovascular: no JVD Extremities: normal inspection Neurologic/Psychiatric: alert, normal mood/affect, oriented x 3 Skin: normal color Comments: Scrotal swelling and erythema of the groin and scrotum greatly improved today. Laboratory Results Last 24 Hours Test 04/03/16 05:45 White Blood Count 7.13 K/uL Red Blood Count 4.68 M/uL Hemoglobin 14.0 g/dL Hematocrit 40.2 % Mean Corpuscular Volume 85.9 fL Mean Corpuscular Hemoglobin 29.9 pg Mean Corpuscular Hemoglobin Concent 34.8 g/dl Platelet Count 251 K/uL Mean Platelet Volume 9.5 fL RDW Standard Deviation 40.8 fL RDW Coefficient of Variation 13.1 % Neutrophils % (Manual) 52.2 % Lymphocytes % (Manual) 33.9 % Monocytes % (Manual) 11.3 % Eosinophils % (Manual) 2.6 % Neutrophils # (Manual) 3.72 K/uL Total Absolute Neutrophils 3.72 K/uL Lymphocytes # (Manual) 2.42 K/uL Total Absolute Lymphocytes 2.42 K/uL Monocytes # (Manual) 0.81 K/uL Eosinophils # (Manual) 0.19 K/uL Red Blood Cell Morphology Unremarkable Sodium Level 141 mmol/L Potassium Level 3.6 mmol/L Chloride Level 105 mmol/L Carbon Dioxide Level 28 mmol/L Anion Gap 8.0 mmol/L Blood Urea Nitrogen 11 mg/dl Creatinine 0.76 mg/dl Est Creatinine Clear Calc Drug Dose 155.0 ml/min Estimated GFR () 141.9 Estimated GFR (Non- 122.4 BUN/Creatinine Ratio 14.0 Random Glucose 124 mg/dl Calcium Level 8.7 mg/dl Magnesium Level 1.9 mg/dl Assessment and Plan S/p I&D of scrotal abscess. AFVSS. Recommend transitioning to 10-14 days of Bactrim DS prior to d/c home. Continue daily wound packing changes. Home health nursing to be arranged by home health care social worker. Pt OK for d/c home from [facility]. Will arrange for outpatient f/u in 1 week. Continued [facility] stay due to: other (IV medications needed, awaiting the culture of I&D fluid.)
[2016-04-03] MEDS: LACTOBACILLUS ACIDOPHILUS (FLORANEX) TAB PO SCH (08:30)
[2016-04-03] MEDS: CEROVITE ADV FORMULA TAB PO SCH (08:30)
[2016-04-03] MEDS: MoRPHine SULFATE 4 MG/ML 1 ML CARP\\VIAL IV PRN ×2 (08:31→10:55)
[2016-04-03] MEDS ORDERED: SULF800T23 PO (08:58)
--- NOTE | 2016-04-03 10:14 | Medical Student: [facility] ---
Discharge Summary Admission Date: Mar 31, 2016 at 17:56 Discharge Date: Apr 03, 2016 Discharge Disposition: Home Principal Diagnosis: Cellulitis of the Scrotum Discharge Exam Review of Systems: Constitutional: No chills, No fever, No weight loss Eyes: No discharge, No redness ENT: No hearing loss, No sore throat Respiratory: No cough, No dyspnea at rest, No dyspnea on exertion, No shortness of breath, No wheezing Cardiovascular: No chest pain, No edema, No palpitations Abdomen: No diarrhea, No nausea, No pain, No vomiting Musculoskeletal: No calf pain, No joint pain, No muscle pain, No swelling Neurologic: No memory loss, No numbness/tingling, No paralysis, No weakness Psychiatric: No anxiety, No depression symptoms Integumentary: No itch, No new/changing skin lesions, No rash Physical Exam: General Appearance: WD/WN, no apparent distress Eyes: normal inspection, EOMI Respiratory/Chest: lungs clear, normal breath sounds, no respiratory distress, no accessory muscle use Cardiovascular: regular rate, rhythm, no edema, no gallop, no murmur, normal peripheral pulses Abdomen / GI: normal bowel sounds, non tender, soft, no organomegaly Extremities: normal inspection, no pedal edema, non-tender Neurologic/Psychiatric: alert, normal mood/affect, oriented x 3 Skin: normal color, warm/dry, + pertinent finding (area of redness has diminished on the right thigh, scrotal swelling, wound bandage from I&D in place ) Lymphatic: no adenopathy Hospital Course The patient is a 30-year-old male presents to the emergency department for recheck of scrotal cellulitis Atrovent seen 2 days previously at the emergency department. Workup that time included a testicular ultrasound, CT scan of the pelvis and laboratory studies. He did have culture of drainage which showed staph aureus which is only resistant to erythromycin. He had been sent home on Keflex and Bactrim DS twice a day for treatment. He continues to have the same amount of pain, for which hydrocodone helps. He has not noted any improvement in pain and swelling in the scrotum, and has noted progression of erythema farther up his pubic area toward his umbilicus area. He has not had any dysuria , urinary frequency, hematuria. He does report that he is able to squeeze the lower aspect of the right scrotum and continued to get pus to drain out of it while in shower. HOSPITAL COURSE: 30 yo M with right scrotal cellulitis, with MSSA on culture from ED 03/29/16 and inpatient 04/01/16, with diminished swelling and erythema following three days of IV Clindamycin. R Scrotal cellulitis, failed outpatient treatment - The patient had previous cellulitis on penis from shaving inguinal area prior to this admission. - Culture from aspiration of previous ED visit on 03/29/16, showed MSSA - Underwent I&D with Dr Penaloza on 04/01/16 - Cultures from this I&D also showed MSSA - Patient received three days of Clindamycin 900mg IV. Patient will be transitioned to Bactrim PO 10-14 days. He will follow up with urology in one week. - ... for pain - Continue packing. Patient has been instructed on how to bandage and pack the wound while at home. Home Health / Wound Care follow up. Hx of Seizures Patient not on any home meds for seizure prophylaxis. Patient was monitored and had no seizures during admission. VTE: SCDs CODE: FULL DISPO: MED/SURG This includes examination of the patient, discharge planning, medication reconciliation, and communication with other providers. Discharge Instructions Please refer to the electronic Patient Visit Report (Discharge Instructions) for additional information. Follow-Up Patient will follow up with urology in one week and also has scheduled follow up with wound care.
[2016-04-03 10:24] VITALS: BP 110/70; PULSE 83; TEMP 36.5; O2SAT 100
--- NOTE | 2016-04-03 10:31 | Discharge Summary ---
Discharge Summary Admission Date: Mar 31, 2016 at 17:56 Discharge Date: Apr 03, 2016 Discharge Disposition: Home Principal Diagnosis: R scrotal abscess Procedures: I&D with Dr Penaloza 03/01/16 TESTICULAR ULTRASOUND CLINICAL HISTORY: RIGHT scrotal abscess COMPARISON STUDY: No previous studies for comparison. FINDINGS: The right testis measures 4.8 x 2.8 x 3.3 cm. The left testis measures 4.7 x 2.9 x 3.3 cm. No intratesticular masses are visualized. There is no evidence of testicular torsion. There is a markedly thick in the right hemiscrotum. IMPRESSION: 1. Markedly thickened heterogeneous right scrotal wall. 2. No evidence of intratesticular mass. 3. No evidence of testicular torsion. CT PELVIS CT SCAN OF THE PELVIS WITH IV CONTRAST CLINICAL HISTORY: Right groin lump. COMPARISON STUDY: Scrotal ultrasound dated 03/29/16. TECHNIQUE: CT scan of the pelvis is performed from the pelvic inlet to the proximal femora. Images are reviewed in the axial, sagittal, and coronal planes. IV contrast was administered without complication. CT DOSE: 1153.51 mGy.cm FINDINGS: The bladder is normal in appearance. There is a 2.0 cm cystic structure identified in the prostate gland on image #177. This likely represents a utricular cyst. The seminal vesicles are normal as imaged. There is marked scrotal wall thickening and edema, right greater than left. There is a small complex/multiloculated fluid collection identified in the right scrotal wall seen on image #291. This measures 2.4 x 1.6 cm and is consistent with a small abscess. There is no large hydrocele. The testes are normal as visualized. Prominent right inguinal lymph nodes are likely on a reactive basis. There is no pelvic sidewall or iliac chain lymphadenopathy. The iliac vessels are widely patent. Visualized bowel loops are normal in caliber. A normal appendix is seen. There is a small fat-containing umbilical hernia. The bony pelvis is intact. No lytic or blastic bony lesions are seen. An indeterminant but benign-appearing lucency is noted in the body of L4. This is only partially visualized. IMPRESSION: 1. There is diffuse wall thickening and edema of the scrotal wall, right greater than left. The appearance is typical for cellulitis. 2. There is a 2.4 cm multiloculated fluid collection identified within the right scrotal wall consistent with a small abscess. 3. Prominent right inguinal lymph nodes are likely on a reactive basis. 4. There is a 2.0 cm simple appearing cystic structure identified in the prostate gland. This likely represents a utricular cyst. A urethral diverticulum is considered less likely. Consider nonemergent urologic follow-up. 5. There is indeterminant benign-appearing lucent lesion partially visualized in the body of L4. Consider nonemergent radiographic follow-up. Consultations: Urology Wound Care - Dr Hernandez (Joleen López MD) Medication Reconciliation Continued Medications: Hydrocodone/Acetaminophen 5MG/325MG ([place] 5MG/325MG) Tab 1-2 TABLET PO Q4H PRN for Pain, #20 TAB For Initial Treatment Multiple Vitamins W/ Minerals (Mens Multi Vitamin & Mine) 1 Tab Tab Naproxen (Naproxen) 375 Mg Tab 1 TAB PO BID PRN for Headache or Pain for 30 Days, #60 TAB 5 Refills Sulfa/Trimethoprim (Bactrim Ds 800MG/160MG) Tab 1 TAB PO BID for 13 Days, #26 TAB (This prescription has been renewed) Discontinued Medications: Cephalexin Monohydrate (Keflex) 500 Mg Cap 500 MG PO TID for 10 Days, #30 CAP Discharge Exam Review of Systems: Constitutional: No chills, No fever, No weight loss Eyes: No discharge, No redness ENT: No hearing loss, No sore throat Respiratory: No cough, No dyspnea at rest, No dyspnea on exertion, No shortness of breath, No wheezing Cardiovascular: No chest pain, No edema, No palpitations Abdomen: No diarrhea, No nausea, No pain, No vomiting Musculoskeletal: No calf pain, No joint pain, No muscle pain, No swelling Neurologic: No memory loss, No numbness/tingling, No paralysis, No weakness Psychiatric: No anxiety, No depression symptoms Integumentary: No itch, No new/changing skin lesions, No rash Physical Exam: General Appearance: WD/WN, no apparent distress Eyes: normal inspection, EOMI Respiratory/Chest: lungs clear, normal breath sounds, no respiratory distress, no accessory muscle use Cardiovascular: regular rate, rhythm, no edema, no gallop, no murmur, normal peripheral pulses Abdomen / GI: normal bowel sounds, non tender, soft, no organomegaly Extremities: normal inspection, no pedal edema, non-tender Neurologic/Psychiatric: alert, normal mood/affect, oriented x 3 Skin: normal color, warm/dry, + pertinent finding (area of redness has diminished on the right thigh, scrotal swelling, wound bandage from I&D in place. Previously, there was a 1.5cm open area of drainage on the inferolateral R hemiscrotum (which on admission was very tender with erythema up to inguinal region) Lymphatic: no adenopathy (previous lymphadenopathy has resolved) (Joleen López MD) Review of Systems: Constitutional: No chills, No fever Respiratory: No shortness of breath Cardiovascular: No chest pain Genitourinary - Male: No dysuria, No hematuria Physical Exam: General Appearance: no apparent distress Respiratory/Chest: no respiratory distress Cardiovascular: regular rate, rhythm Neurologic/Psychiatric: alert, oriented x 3 Skin: + pertinent finding (erythema in groin significantly improved. right scrotal area with wound. ) (Lauren Britton M.D.) Hospital Course HPI: The patient is a 30-year-old male presents to the emergency department for recheck of scrotal cellulitis seen 2 days previously at the emergency department. Workup that time included a testicular ultrasound (negative for mass), CT scan of the pelvis and laboratory studies. He did have culture of drainage which showed staph aureus which is only resistant to erythromycin. He had been sent home on Keflex and Bactrim DS twice a day for treatment. He continues to have the same amount of pain, for which hydrocodone helps. He has not noted any improvement in pain and swelling in the scrotum, and has noted progression of erythema farther up his pubic area toward his umbilicus area. He has not had any dysuria, urinary frequency, hematuria. He does report that he is able to squeeze the lower aspect of the right scrotum and continued to get pus to drain out of it while in shower. HOSPITAL COURSE: 30 yo M with right scrotal cellulitis, with MSSA on culture from ED 03/29/16 and inpatient 04/01/16, with diminished swelling and erythema following three days of IV Clindamycin. R Scrotal cellulitis, failed outpatient treatment - The patient had previous cellulitis on penis from shaving inguinal area prior to this admission. - Culture from aspiration of previous ED visit on 03/29/16, showed MSSA - Underwent I&D with Dr Penaloza on 04/01/16 - Cultures from this I&D also showed MSSA - RESISTANT TO ERYTHROMYCIN, SENSITIVE TO BACTRIM AND TETRACYCLINES - Patient received three days of Clindamycin 900mg IV. Patient will be transitioned to Bactrim PO 10-14 days. He will follow up with urology in one week. - Continue home oxycodone / naproxen for pain - Continue packing. Patient has been instructed on how to bandage and pack the wound while at home. Wound Care follow up. Hx of Seizures Patient not on any home meds for seizure prophylaxis. Patient was monitored and had no seizures during admission. Indeterminant benign-appearing lucent lesion partially visualized in the body of L4 - Consider radiographic follow up VTE: SCDs CODE: FULL DISPO: MED/SURG Total Time Spent: Greater than 30 minutes This includes examination of the patient, discharge planning, medication reconciliation, and communication with other providers. (Joleen López MD) I have reviewed the medical record and performed a history and physical examination of this patient today. I have discussed the case with Dr. López. The above note reflects my findings, conclusions, and recommendations. Outpatient f/u with wound clinic. Abx rx given Total Time Spent: Greater than 30 minutes (35 min) (Lauren Britton M.D.) Discharge Instructions Please refer to the electronic Patient Visit Report (Discharge Instructions) for additional information. (Joleen López MD) Follow-Up - With Wound Care as arranged - With Urology within a week, as arranged - With PCP within a week, also arranged prior to DC (Joleen López MD) Additional Copies To Sara Hernandez CRNP; Lj Hernandez MD Resident Tracking Resident Involvement: Resident Care Provided Care Provided: [facility] (Joleen López MD)
--- NOTE | 2016-04-03 15:19 | CONSULTATION REPORT ---
DATE OF CONSULTATION: 04/03/2016 CHIEF COMPLAINT: Postoperative wound scrotal region. HISTORY OF PRESENT ILLNESS: The patient states that he developed an infection in the scrotal area, possibly from an infected hair follicle approximately a week ago. The patient was subsequently seen and treated at the [facility] for a scrotal abscess with the incision and drainage performed in the past 48 hours. The patient states he still has some minimal discomfort at this site, but denies any fever, chills or night sweats. The patient denies any redness or swelling in the abdomen or thigh which he had a few days prior. PAST MEDICAL HISTORY: Unremarkable. PAST SURGICAL HISTORY: Incision and drainage of the abscess in the scrotum as noted above. MEDICATIONS: Noted in the nursing notes were reviewed. ALLERGIES: BUPROPION. REVIEW OF SYSTEMS: Ten systems were reviewed in there entirety and positive findings were noted in the chief complaint and history of present illness. PHYSICAL EXAMINATION: VITAL SIGNS: Reviewed and found to be unremarkable. GENERAL: The patient is lying in the hospital bed in no acute distress, alert and cooperative throughout the examination. HEENT: Pupils equal and reactive to light. Sclerae are clear. NECK: Supple. CHEST: Heart and lungs clear to auscultation. GENITOURINARY: The genital region shows a postoperative surgical wound to the right scrotal area measuring 3 x 1 x 4 cm. There is no central slough. There is no active drainage. There is no periwound erythema. There is no presence of inguinal adenopathy on the right side and no extension of any erythema into the abdomen or groin region. NEUROLOGIC: The patient is alert and oriented x3. No focal deficits noted. IMPRESSION: Postoperative wound to right scrotal region from incision and drainage of an abscess. PLAN: At this time, no debridement is indicated. The site will be dressed with iodoform gauze packing. This packing will be maintained in place and the patient will be reevaluated in the wound clinic on Friday. It was felt at that time that a wound VAC will be able to be employed with black foam negative pressure 125 mm, wound VAC changed Friday, Friday, Friday. The patient will also be placed on antibiotic therapy.
[2016-06-24] MEDS ORDERED: DIPH1TAB PO (10:45)
== END 2016-04-03 11:51 | disposition home or self-care (01) | DRG 728 ==
LOC: ENRESERVTM → ENRESERVDT → C.EDB 15:16 → C.4E 17:56
PROVIDERS: ADMIT Hospitalist; ATTEND Family Medicine
PROC: 0V953ZX Drainage of Scrotum, Percutaneous Approach, Diagnostic (ICD-10-PCS; principal; 2016-04-01)
DX: N49.2 Inflammatory disorders of scrotum (principal); A49.01 Methicillin susceptible Staphylococcus aureus infection, unspecified site; Z16.29 Resistance to other single specified antibiotic; B00.9 Herpesviral infection, unspecified; R93.8 Abnormal findings on diagnostic imaging of other specified body structures; F17.210 Nicotine dependence, cigarettes, uncomplicated; Z86.69 Personal history of other diseases of the nervous system and sense organs

== ENCOUNTER 2016-06-24 09:48 | Emergency (ER) | payer OTHER ==
[~2016-06-24] VITALS: Ht 180.3 cm; Wt 92.7 kg
[~2016-06-24 09:48] MED LIST changes: -CEPH500C PO; +NAPR-1221 PO; -NAPR375T3 PO; -SULF800T23 PO
[2016-06-24 09:56] VITALS: TEMP 36.7; Ht 180.3 cm; Wt 92.7 kg
[2016-06-24] MEDS ORDERED: CEFTRIAXONE SOD INJ 1 GM ADDVIAL IV STA (10:39)
[2016-06-24] MEDS ORDERED: SULF800T23 PO (10:45)
[2016-06-24] MEDS ORDERED: DIPH1TAB87 PO (10:45)
--- NOTE | 2016-06-24 11:13 | DIAGNOSTIC IMAGING REPORT ---
LEFT HAND MIN 3 VIEWS ROUTINE CLINICAL HISTORY: Second finger infection. COMPARISON: None FINDINGS: Alignment of the left hand is anatomic. There is no fracture or suspicious osseous lesion. There is no radiographic evidence of osteomyelitis of the left second finger. There is left second finger soft tissue swelling. IMPRESSION: 1. No acute fracture or evidence of osteomyelitis within the left hand. 2. Soft tissue swelling of the left second finger. No radiopaque foreign body. Electronically signed by: Pola Major M.D. 06/24/2016 11:12 AM Dictated Date/Time: 06/24/2016 11:11 AM
[2016-06-24 11:14] LABS: BASO % 0.1 %; BASO ABS # 0.01 K/uL (0-0.2); COMPLETE YES; EOS % 1.7 %; HEMATOCRIT 45.5 % (42-52); IG% 0.3 %; LYMPH % 19.1 %; LYMPH ABS # 1.44 K/uL (1.2-3.4); MEAN CELL VOLUME 85.5 fL (80-100); MEAN CORPUSCULAR HEMOGLOBIN 29.1 pg (25-34); MEAN CORPUSCULAR HGB CONC 34.1 g/dl (32-36); MEAN PLATELET VOLUME 9.7 fL (7.4-10.4); MONO % 10.8 %; PLATELET COUNT 205 K/uL (130-400); RED BLOOD COUNT 5.32 M/uL (4.7-6.1); WHITE BLOOD COUNT 7.53 K/uL (4.8-10.8)
[2016-06-24] MEDS ORDERED: CEPH500C2 PO (11:55)
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
[2016-06-24 11:58] VITALS: BP 152/81; PULSE 79; O2SAT 97
== END 2016-06-24 12:10 | disposition home or self-care (01) ==
LOC: C.EDB 09:50 → C.EDC 12:10
DX: L02.512 Cutaneous abscess of left hand (principal); F17.210 Nicotine dependence, cigarettes, uncomplicated